=== PATIENT | female | born 1990 | race Two or more races ===

== ENCOUNTER 2023-02-12 13:02 | Observation (INO) | payer MEDICAID ==
[2023-02-15] MEDS ORDERED: PRENCAP75 PO (14:54)
[2023-02-15] MEDS ORDERED: NITR-87 PO (14:54)
== END 2023-02-12 15:08 | disposition home or self-care (01) ==
LOC: UNDOADMOB 13:02 → LDRP 13:02 → UNDODISOB 15:08
PROVIDERS: ADMIT Obstetrics & Gynecology; ATTEND Obstetrics & Gynecology
DX: O24.419 Gestational diabetes mellitus in pregnancy, unspecified control (principal); O40.3XX0 Polyhydramnios, third trimester, not applicable or unspecified; O42.92 Full-term premature rupture of membranes, unspecified as to length of time between rupture and onset of labor; Z3A.34 34 weeks gestation of pregnancy
CPT/HCPCS: 59025; 76818; 81002; G0378

== ENCOUNTER 2023-02-15 12:48 | Observation (INO) | payer MEDICAID ==
[~2023-02-15] VITALS: Ht 30.5 cm; Wt 0.5 kg
[2023-02-15 14:12] LABS: Urine Bacteria FEW /hpf (None Seen); Urine Blood Negative /uL (Negative); Urine Mucus FEW (None Seen); Urine Specific Gravity 1.019 (1.001-1.035); Urine WBC 5 /hpf (0 - 5)
[2023-02-15] MEDS ORDERED: LACTATED RINGER'S 1,000 ML IV ONE (14:15)
[2023-02-15] MEDS ORDERED: BETAMETHASONE ACET (30mg/5ml) 5ml Vial 6mg/ml IM ONE (14:45)
[2023-02-15] MEDS ORDERED: TERBUTALINE SULFATE 1 MG/ML 1ML VIAL SC ONE (14:45)
[2023-02-15] MEDS ORDERED: NITR-87 PO ×2 (14:54)
[2023-02-15] MEDS ORDERED: PRENCAP75 PO ×2 (14:54)
== END 2023-02-15 16:15 | disposition home or self-care (01) ==
LOC: UNDOADMOB 12:48 → LDRP 12:48
PROVIDERS: ADMIT Obstetrics & Gynecology; ATTEND Obstetrics & Gynecology
DX: O23.43 Unspecified infection of urinary tract in pregnancy, third trimester (principal); O60.03 Preterm labor without delivery, third trimester; Z3A.34 34 weeks gestation of pregnancy; Z79.899 Other long term (current) drug therapy
CPT/HCPCS: 59025; 76815; 76817; 76818; 81001; 81002; 94760; 96360; 96361; 96372; G0378; J0702; J3105; 90472

== ENCOUNTER 2023-02-16 15:00 | Observation (INO) | payer MEDICAID ==
[~2023-02-16] VITALS: Ht 168 cm; Wt 80.0 kg
[~2023-02-16 15:00] MED LIST: NITR-87 PO; PRENCAP75 PO
[2023-02-16] MEDS ORDERED: BETAMETHASONE ACET (30mg/5ml) 5ml Vial 6mg/ml IM ONE (16:00)
== END 2023-02-16 16:43 | disposition home or self-care (01) ==
LOC: LDRP 15:00 → UNDOADMOB 15:00 → LDRP 15:12
PROVIDERS: ADMIT Obstetrics & Gynecology; ATTEND Obstetrics & Gynecology
DX: O60.03 Preterm labor without delivery, third trimester (principal); O40.3XX0 Polyhydramnios, third trimester, not applicable or unspecified; O99.891 Other specified diseases and conditions complicating pregnancy; M54.9 Dorsalgia, unspecified; Z3A.34 34 weeks gestation of pregnancy
CPT/HCPCS: 59025; 81002; 96372; G0378

== ENCOUNTER 2023-02-19 09:05 | Observation (INO) | payer MEDICAID | END 2023-02-19 10:16 | disposition home or self-care (01) | LOC: UNDOADMOB 09:05 → LDRP 09:05 → UNDODISOB 10:16 | PROVIDERS: ADMIT Obstetrics & Gynecology; ATTEND Obstetrics & Gynecology | DX: O40.3XX0 Polyhydramnios, third trimester, not applicable or unspecified (principal); Z3A.35 35 weeks gestation of pregnancy | CPT/HCPCS: 59025; 76818; 81002; G0378 ==

== ENCOUNTER → 2023-02-21 | Outpatient (CLI) | payer MEDICAID ==
[2023-02-21 11:59] LABS: Basophils # (auto) 0 10 ^3/uL (0-0.2); Basophils % (auto) 0.2 % (0.0-2.0); Eosinophils # (auto) 0 10 ^3/uL (0-0.8); Eosinophils % (auto) 0.3 % (0.0-7.0); Hematocrit 38.7 % (36.0-46.0); Hemoglobin 13.1 g/dL (12.2-16.2); Lymphocytes # (auto) 1.6 10 ^3/uL (0.4-5.4); Lymphocytes % (auto) 16.2 % (10.0-50.0); Mean Corpuscular Hemoglobin 32.6 pg (28.0-32.0); Mean Corpuscular Hgb Conc. 33.8 g/dL (32.0-36.0); Mean Corpuscular Volume 96.5 fL (80.0-100.0); Monocytes # (auto) 0.7 10 ^3/uL (0-1.3); Monocytes % (auto) 6.9 % (0.0-12.0); Neutrophils # (auto) 7.4 10 ^3/uL (1.6-8.6); Neutrophils % (auto) 76.4 % (37.0-80.0); Nucleated Red Blood Cells % 0.1 %; Red Blood Cells 4.01 10^6/uL (4.0-5.20); Red Cell Distribution Width 13.6 % (11.8-14.3); White Blood Cell 9.7 10^3/uL (4.4-10.8)
[2023-02-21 17:09] LABS: Amphetamine Screen, Urine NEGATIVE (NEGATIVE); Barbiturate Scree,Urine NEGATIVE (NEGATIVE); Benzodiazephine Screen, Urine NEGATIVE (NEGATIVE); Cannabinoid Screen, Urine NEGATIVE (NEGATIVE); Cocaine Screen, Urine NEGATIVE (NEGATIVE)
[2023-02-21 17:10] LABS: Alcohol, Urine < 3.0 mg/dL (0-10); Opiate Scree,Urine NEGATIVE (NEGATIVE); Phencyclidine Screen, Urine NEGATIVE (NEGATIVE)
[2023-02-22 05:07] LABS: RPR Non Reactive (Non Reactive)
== END | disposition home or self-care (01) ==
LOC: LAB 11:31
PROVIDERS: ATTEND Obstetrics & Gynecology
DX: Z34.00 Encounter for supervision of normal first pregnancy, unspecified trimester (principal); Z31.430 Encounter of female for testing for genetic disease carrier status for procreative management; N39.0 Urinary tract infection, site not specified; Z3A.00 Weeks of gestation of pregnancy not specified
CPT/HCPCS: 36415; 80307; 83036; 84112; 84144; 84702; 85025; 86592; 86703; 86762; 86850; 86900; 86901; 87086; 87340

== ENCOUNTER 2023-02-22 09:00 | Observation (INO) | payer MEDICAID | END 2023-02-22 10:40 | disposition home or self-care (01) | LOC: UNDOADMOB 09:00 → LDRP 09:00 → UNDODISOB 10:40 | PROVIDERS: ADMIT Obstetrics & Gynecology; ATTEND Obstetrics & Gynecology | DX: O40.3XX0 Polyhydramnios, third trimester, not applicable or unspecified (principal); Z3A.35 35 weeks gestation of pregnancy | CPT/HCPCS: 59025; 76805; 76818; 81002; 94760; G0378 ==

== ENCOUNTER 2023-02-22 10:38 | Emergency (ER) | payer MEDICAID ==
[2023-02-22 11:52] LABS: Basophils # (auto) 0 10 ^3/uL (0-0.2); Basophils % (auto) 0.1 % (0.0-2.0); Eosinophils # (auto) 0 10 ^3/uL (0-0.8); Eosinophils % (auto) 0.2 % (0.0-7.0); Lymphocytes # (auto) 1.4 10 ^3/uL (0.4-5.4); Lymphocytes % (auto) 16.8 % (10.0-50.0); Mean Corpuscular Hemoglobin 32.9 pg (28.0-32.0); Mean Corpuscular Hgb Conc. 34.2 g/dL (32.0-36.0); Monocytes # (auto) 0.6 10 ^3/uL (0-1.3); Monocytes % (auto) 7.4 % (0.0-12.0); Neutrophils # (auto) 6.5 10 ^3/uL (1.6-8.6); Neutrophils % (auto) 75.5 % (37.0-80.0); Nucleated Red Blood Cells % 0.1 %; Red Blood Cells 3.96 10^6/uL (4.0-5.20); Red Cell Distribution Width 13.9 % (11.8-14.3); White Blood Cell 8.6 10^3/uL (4.4-10.8)
[2023-02-22 12:14] LABS: Albumin 2.8 g/dL (3.4-5.0); BUN/Creatinine Ratio 14.6 (10.0-20.0); Calcium 8.9 mg/dL (8.5-10.1); Potassium 3.8 mmol/L (3.5-5.1)
[2023-02-22 12:17] LABS: Bilirubin, Total 0.2 mg/dL (0.2-1.0); Total Protein 6.1 g/dL (6.4-8.2)
[2023-02-22 13:19] VITALS: BP 105/63
== END 2023-02-22 13:26 | disposition home or self-care (01) ==
LOC: ER 10:38
DX: O26.893 Other specified pregnancy related conditions, third trimester (principal); R07.89 Other chest pain; Z3A.35 35 weeks gestation of pregnancy
CPT/HCPCS: 36415; 80053; 84484; 85025; 93005

== ENCOUNTER 2023-03-19 12:01 | Observation (INO) | payer MEDICAID | END 2023-03-19 17:46 | disposition home or self-care (01) | LOC: LDRP 12:01 | PROVIDERS: ADMIT Obstetrics & Gynecology; ATTEND Obstetrics & Gynecology | DX: O26.893 Other specified pregnancy related conditions, third trimester (principal); R10.9 Unspecified abdominal pain; O62.9 Abnormality of forces of labor, unspecified; Z3A.39 39 weeks gestation of pregnancy | CPT/HCPCS: 59025; 81002; G0378 ==

== ENCOUNTER 2023-03-26 09:56 | Observation (INO) | payer SELFPAY ==
[2023-03-26 11:36] LABS: Fern Testing Negative
== END 2023-03-26 12:14 | disposition home or self-care (01) ==
LOC: LDRP 09:56
PROVIDERS: ADMIT Obstetrics & Gynecology; ATTEND Obstetrics & Gynecology
DX: O26.893 Other specified pregnancy related conditions, third trimester (principal); R10.2 Pelvic and perineal pain; N89.8 Other specified noninflammatory disorders of vagina; Z3A.40 40 weeks gestation of pregnancy
CPT/HCPCS: 59025; 76818; 81002; 84112; G0378; Q0114

== ENCOUNTER 2023-03-27 20:00 | Inpatient (IN) | payer SELFPAY ==
[~2023-03-27] VITALS: Ht 167.6 cm; Wt 86.6 kg
[2023-03-27] MEDS ORDERED: DERMOPLAST 60ML BOTTLE TOP PRN (20:15)
[2023-03-27] MEDS ORDERED: BUTORPHANOL TARTRATE 2 MG/1 ML VIAL IV PRN ×2 (20:15)
[2023-03-27] MEDS ORDERED: miSOPROStol 50 MCG per PRE-CUT 1/2 TAB PO PRN (20:15)
[2023-03-27] MEDS ORDERED: WITCH HAZEL-GLYCERIN PAD TOP PRN (20:15)
[2023-03-27] MEDS ORDERED: PROMETHAZINE HCL 25 MG/ML 1ML IV PRN (20:15)
[2023-03-27] MEDS ORDERED: LIDOCAINE 2%HCL (LOCAL ANESTH.) INJ 20ML MDV IJ PRN (20:15)
[2023-03-27] MEDS ORDERED: PHISODERM TOP SOLN 240ML BTL TOP PRN (20:15)
[2023-03-27] MEDS: LACTATED RINGER'S 1,000 ML IV SCH (21:33)
[2023-03-27 21:54] LABS: Basophils # (auto) 0 10 ^3/uL (0-0.2); Basophils % (auto) 0.2 % (0.0-2.0); Eosinophils # (auto) 0 10 ^3/uL (0-0.8); Eosinophils % (auto) 0.3 % (0.0-7.0); Hemoglobin 12.6 g/dL (12.2-16.2); Lymphocytes # (auto) 1.7 10 ^3/uL (0.4-5.4); Lymphocytes % (auto) 17.2 % (10.0-50.0); Mean Corpuscular Hemoglobin 32.8 pg (28.0-32.0); Mean Corpuscular Hgb Conc. 34.1 g/dL (32.0-36.0); Mean Corpuscular Volume 96.1 fL (80.0-100.0); Monocytes # (auto) 0.7 10 ^3/uL (0-1.3); Monocytes % (auto) 7.4 % (0.0-12.0); Neutrophils # (auto) 7.4 10 ^3/uL (1.6-8.6); Neutrophils % (auto) 74.9 % (37.0-80.0); Nucleated Red Blood Cells % 0.1 %; Red Blood Cells 3.86 10^6/uL (4.0-5.20); Red Cell Distribution Width 13.7 % (11.8-14.3); White Blood Cell 9.8 10^3/uL (4.4-10.8)
[2023-03-27 22:09] LABS: Albumin 2.6 g/dL (3.4-5.0); Potassium 3.4 mmol/L (3.5-5.1)
[2023-03-27 22:13] LABS: Urine Bacteria FEW /hpf (None Seen); Urine Blood Negative /uL (Negative); Urine Clarity HAZY (Clear); Urine Color Yellow (Yellow); Urine Protein, UAD TRACE (Negative); Urine Specific Gravity 1.016 (1.001-1.035); Urine Urobilinogen Normal (Negative); Urine WBC 52 /hpf (0 - 5); Urine pH 5.5 (5.0-8.0)
[2023-03-27 22:13] LABS: BUN/Creatinine Ratio 15.7 (10.0-20.0); Bilirubin, Total 0.2 mg/dL (0.2-1.0); Total Protein 6.2 g/dL (6.4-8.2)
[2023-03-27 22:16] LABS: INR 0.88 (0.9-1.15); Partial Thromboplastin Time 25.1 SEC (24.5-34.5); Prothrombin Time 9.3 sec (9.3-11.8)
[2023-03-27 22:20] LABS: Alcohol, Urine < 3.0 mg/dL (0-10); Amphetamine Screen, Urine NEGATIVE (NEGATIVE); Barbiturate Scree,Urine NEGATIVE (NEGATIVE); Benzodiazephine Screen, Urine NEGATIVE (NEGATIVE); Cannabinoid Screen, Urine NEGATIVE (NEGATIVE); Cocaine Screen, Urine NEGATIVE (NEGATIVE); Opiate Scree,Urine NEGATIVE (NEGATIVE); Phencyclidine Screen, Urine NEGATIVE (NEGATIVE)
[2023-03-28] MEDS ORDERED: LACT. RINGERS/OXYTOCIN 20UNITS 500 ML IV ONE ×4 (01:15→06:45)
[2023-03-28] MEDS: LACTATED RINGER'S 1,000 ML IV SCH ×3 (05:41→20:01)
[2023-03-28] MEDS ORDERED: METHYLERGONOVINE MALEATE 0.2 MG/ML AMP IM PRN (06:15)
[2023-03-28] MEDS ORDERED: miSOPROStol 100 mcg TAB PR PRN (06:15)
[2023-03-28] MEDS ORDERED: CARBOPROST TROMETHAMINE 250 MCG/1ML VIAL IM ONE (06:15)
[2023-03-28] MEDS ORDERED: miSOPROStol 100 mcg TAB SL PRN (06:15)
[2023-03-28] MEDS ORDERED: LACT. RINGERS/OXYTOCIN 20UNITS 1,000 ML IV SCH (07:00)
[2023-03-28] MEDS ORDERED: TERBUTALINE SULFATE 1 MG/ML 1ML VIAL SC PRN (07:00)
[2023-03-28] MEDS ORDERED: LACTATED RINGER'S 1,000 ML IV ONE (13:15)
[2023-03-28] MEDS ORDERED: ROPIVACAINE HCL 200 ML EPI SCH (13:15)
[2023-03-28] MEDS ORDERED: LIDOCAINE HCL 2 %PF INJ 10ML AMP IJ ONE (13:15)
[2023-03-28] MEDS ORDERED: ePHEDrine SULFATE 50 MG/ML AMP IV ONE (13:15)
[2023-03-28] MEDS ORDERED: fentaNYL CITRATE 100 MCG/2 ML VL IV ONE (13:15)
[2023-03-28] MEDS ORDERED: NALOXONE HCL 0.4 MG/ML VIAL IV ONE (13:15)
[2023-03-28] MEDS ORDERED: Lidocaine W-Epinephrine 1.5%-1:200,000 INJ 10ml Vial ONE (13:37)
[2023-03-29] MEDS ORDERED: ceFAZolin 2 GM/D5W100ml 100 ML IV ONE (02:30)
[2023-03-29] MEDS: LACTATED RINGER'S 1,000 ML IV SCH (02:55)
[2023-03-29] MEDS ORDERED: ONDANSETRON ODT 4 MG TAB PO PRN (06:45)
[2023-03-29 07:06] LABS: RPR Non Reactive (Non Reactive)
[2023-03-29] MEDS: IBUPROFEN 600 MG TAB PO PRN ×3 (07:10→19:48)
[2023-03-29] MEDS ORDERED: hydrALAZINE HCL 20 MG/ML VL IV PRN (07:15)
[2023-03-29 07:55] LABS: Basophils # (auto) 0 10 ^3/uL (0-0.2); Basophils % (auto) 0.2 % (0.0-2.0); Eosinophils # (auto) 0 10 ^3/uL (0-0.8); Hematocrit 39.6 % (36.0-46.0); Hemoglobin 13.2 g/dL (12.2-16.2); Lymphocytes % (auto) 6.1 % (10.0-50.0); Mean Corpuscular Hemoglobin 32.4 pg (28.0-32.0); Mean Corpuscular Hgb Conc. 33.5 g/dL (32.0-36.0); Mean Corpuscular Volume 96.8 fL (80.0-100.0); Monocytes # (auto) 0.7 10 ^3/uL (0-1.3); Monocytes % (auto) 4.3 % (0.0-12.0); Neutrophils # (auto) 14.6 10 ^3/uL (1.6-8.6); Neutrophils % (auto) 89.4 % (37.0-80.0); Red Blood Cells 4.09 10^6/uL (4.0-5.20); Red Cell Distribution Width 13.2 % (11.8-14.3); White Blood Cell 16.3 10^3/uL (4.4-10.8)
[2023-03-29] MEDS: ACETAMINOPHEN 325 MG TAB PO PRN ×2 (08:06→17:34)
[2023-03-29 08:08] LABS: INR 0.89 (0.9-1.15); Partial Thromboplastin Time 26.2 SEC (24.5-34.5); Prothrombin Time 9.4 sec (9.3-11.8)
[2023-03-29 09:03] LABS: Albumin 2.3 g/dL (3.4-5.0); Calcium 8.2 mg/dL (8.5-10.1); Potassium 3.5 mmol/L (3.5-5.1)
[2023-03-29 09:06] LABS: BUN/Creatinine Ratio 9.4 (10.0-20.0); Bilirubin, Total 0.4 mg/dL (0.2-1.0); Total Protein 5.9 g/dL (6.4-8.2); Uric Acid 6.9 mg/dL (2.6-6.0)
[2023-03-29] MEDS: ceFAZolin 1GM/50ML 50 ML IV SCH ×2 (10:50→19:47)
[2023-03-29 11:22] VITALS: BP 133/84; PULSE 83; RESP 16; TEMP 99.2; O2SAT 100
[2023-03-29 15:00] VITALS: BP 120/72; PULSE 78; RESP 18; TEMP 98.9; O2SAT 96
[2023-03-29 19:00] VITALS: BP 126/77; PULSE 82; RESP 16; TEMP 98.7; O2SAT 97
[2023-03-29] MEDS ORDERED: DOCUSATE SOD 100 MG CAP PO SCH (22:00)
[2023-03-29 22:45] VITALS: BP 124/80; PULSE 80; RESP 17; TEMP 98.8; O2SAT 98
[2023-03-30] MEDS ORDERED: PRENCAP75 PO (02:03)
[2023-03-30] MEDS ORDERED: ACET-1882 PO (02:03)
[2023-03-30] MEDS ORDERED: IBU600T PO (02:03)
[2023-03-30] MEDS ORDERED: DOCU-265 PO (02:03)
[2023-03-30 02:45] VITALS: BP 116/74; PULSE 77; RESP 17; TEMP 98; O2SAT 97
[2023-03-30] MEDS: ceFAZolin 1GM/50ML 50 ML IV SCH (04:03)
[2023-03-30] MEDS: ACETAMINOPHEN 325 MG TAB PO PRN (06:30)
[2023-03-30 06:48] LABS: Basophils # (auto) 0 10 ^3/uL (0-0.2); Basophils % (auto) 0.2 % (0.0-2.0); Eosinophils # (auto) 0.1 10 ^3/uL (0-0.8); Eosinophils % (auto) 0.6 % (0.0-7.0); Hematocrit 30.7 % (36.0-46.0); Hemoglobin 10.6 g/dL (12.2-16.2); Lymphocytes # (auto) 1.5 10 ^3/uL (0.4-5.4); Lymphocytes % (auto) 14.2 % (10.0-50.0); Mean Corpuscular Hemoglobin 33.4 pg (28.0-32.0); Mean Corpuscular Hgb Conc. 34.5 g/dL (32.0-36.0); Mean Corpuscular Volume 96.8 fL (80.0-100.0); Monocytes # (auto) 0.7 10 ^3/uL (0-1.3); Monocytes % (auto) 6.5 % (0.0-12.0); Neutrophils # (auto) 8.4 10 ^3/uL (1.6-8.6); Neutrophils % (auto) 78.5 % (37.0-80.0); Red Blood Cells 3.17 10^6/uL (4.0-5.20); Red Cell Distribution Width 13.4 % (11.8-14.3); White Blood Cell 10.7 10^3/uL (4.4-10.8)
[2023-03-30 06:50] VITALS: BP 129/83; PULSE 81; RESP 16; TEMP 98.4; O2SAT 96
[2023-03-30 10:50] VITALS: BP 125/81; PULSE 84; RESP 18; TEMP 98.9; O2SAT 97
[2023-03-30] MEDS ORDERED: FER325T PO (14:38)
[2023-03-30 20:06] LABS: Treponema pallidum Ab (FTA-Ab) Non Reactive (Non Reactive)
== END 2023-03-30 10:55 | disposition home or self-care (01) | DRG 807 ==
LOC: LDRP 20:00
PROVIDERS: ADMIT Obstetrics & Gynecology; ATTEND Obstetrics & Gynecology
PROC: 3E0P7VZ Introduction of Hormone into Female Reproductive, Via Natural or Artificial Opening (ICD-10-PCS; 2023-03-27)
PROC: 10E0XZZ Delivery of Products of Conception, External Approach (ICD-10-PCS; principal; 2023-03-29)
PROC: 0KQM0ZZ Repair Perineum Muscle, Open Approach (ICD-10-PCS; 2023-03-29)
PROC: 3E0R3BZ Introduction of Anesthetic Agent into Spinal Canal, Percutaneous Approach (ICD-10-PCS; 2023-03-29)
PROC: 00HU33Z Insertion of Infusion Device into Spinal Canal, Percutaneous Approach (ICD-10-PCS; 2023-03-29)
PROC: 0W8NXZZ Division of Female Perineum, External Approach (ICD-10-PCS; 2023-03-29)
PROC: 3E033VJ Introduction of Other Hormone into Peripheral Vein, Percutaneous Approach (ICD-10-PCS; 2023-03-29)
DX: O48.0 Post-term pregnancy (principal); Z37.0 Single live birth; Z3A.40 40 weeks gestation of pregnancy; O40.3XX0 Polyhydramnios, third trimester, not applicable or unspecified; O70.1 Second degree perineal laceration during delivery
CPT/HCPCS: 36415; 59020; 59025; 59409; 80053; 80307; 81001; 81002; 84550; 85025; 85610; 85730; 86592; 86850; 86900; 86901; 94760; 96360; 96361; 96365; 96366; 96372; 96374; G0378; J0690; J2590

== ENCOUNTER → 2024-07-09 | Outpatient (CLI) | payer MEDICAID ==
[~2024-07-09] MED LIST changes: +ACET-1882 PO; +DOCU-265 PO; +FER325T PO; +IBU600T PO; -NITR-87 PO
[2024-07-09 10:37] LABS: Basophils # (auto) 0 10 ^3/uL (0-0.2); Basophils % (auto) 0.2 % (0.0-2.0); Eosinophils # (auto) 0 10 ^3/uL (0-0.8); Eosinophils % (auto) 0.2 % (0.0-7.0); Hematocrit 38.7 % (36.0-46.0); Hemoglobin 13.1 g/dL (12.2-16.2); Lymphocytes % (auto) 16.5 % (10.0-50.0); Mean Corpuscular Hemoglobin 32.2 pg (28.0-32.0); Mean Corpuscular Hgb Conc. 33.9 g/dL (32.0-36.0); Mean Corpuscular Volume 94.9 fL (80.0-100.0); Monocytes # (auto) 0.5 10 ^3/uL (0-1.3); Monocytes % (auto) 4.1 % (0.0-12.0); Neutrophils # (auto) 9.4 10 ^3/uL (1.6-8.6); Platelet Count (auto) 213 10^3/uL (140-450); Red Blood Cells 4.08 10^6/uL (4.0-5.20); Red Cell Distribution Width 13.2 % (11.8-14.3); White Blood Cell 11.9 10^3/uL (4.4-10.8)
[2024-07-09 10:49] LABS: Amphetamine Screen, Urine Neg (NEGATIVE)
[2024-07-09 10:51] LABS: Alanine Aminotransferase 13 U/L (7-40); Alkaline Phosphatase 82 U/L (46-116); Anion Gap 10 (5-15); Aspartate Aminotransferase 10 U/L (13-40); BUN/Creatinine Ratio 9.4 (10.0-20.0); Barbiturate Scree,Urine Neg (NEGATIVE); Benzodiazephine Screen, Urine Neg (NEGATIVE); Blood Urea Nitrogen 5 mg/dL (9-23); Calcium 9.2 mg/dL (8.7-10.4); Carbon Dioxide 23 mmol/L (20-31); Chloride 107 mmol/L (98-107); Cocaine Screen, Urine Neg (NEGATIVE); Glucose 78 mg/dL (74-106); Opiate Scree,Urine Neg (NEGATIVE); Potassium 3.6 mmol/L (3.5-5.1); Sodium 140 mmol/L (136-145)
[2024-07-09 10:52] LABS: Bilirubin, Total 0.5 mg/dL (0.2-1.0); Cannabinoid Screen, Urine Neg (NEGATIVE); Phencyclidine Screen, Urine Neg (NEGATIVE); Total Protein 6.6 g/dL (5.7-8.2)
[2024-07-09 11:00] LABS: Iron 102 ug/dL (50-170)
[2024-07-09 11:03] LABS: % Iron Saturation 24.7 % (15-50); Total Iron Binding Capacity 413 ug/dL (250-425)
[2024-07-09 11:04] LABS: Ferritin 25.7 ng/mL (10-291)
[2024-07-09 11:07] LABS: Free T4 (Free Thyroxine) 1.01 ng/dL (0.89-1.76)
[2024-07-09 11:08] LABS: Beta HCG, Quantitative 10970.8 mIU/mL (1.5-4.2)
[2024-07-09 11:11] LABS: Thyroid Stimulating Hormone 1.5 uIU/mL (0.55-4.78)
[2024-07-09 11:49] LABS: RUBELLA Positive
[2024-07-10 05:08] LABS: Varicella Zoster IgG Antibody Reactive (Non Reactive)
[2024-07-10 06:07] LABS: RPR Non Reactive (Non Reactive)
== END | disposition home or self-care (01) ==
LOC: LAB 09:37
PROVIDERS: ATTEND Nurse Practitioner Women's Health
DX: Z36.0 Encounter for antenatal screening for chromosomal anomalies (principal); Z34.80 Encounter for supervision of other normal pregnancy, unspecified trimester; N39.0 Urinary tract infection, site not specified; Z31.430 Encounter of female for testing for genetic disease carrier status for procreative management
CPT/HCPCS: 36415; 80053; 80307; 82306; 82728; 83036; 83540; 83550; 84439; 84443; 84702; 85025; 86592; 86703; 86762; 86787; 86850; 86900; 86901; 87086; 87340; 87902

== ENCOUNTER → 2024-08-06 | Outpatient (CLI) | payer MEDICAID ==
[2024-08-06 09:19] LABS: Basophils # (auto) 0 10 ^3/uL (0-0.2); Basophils % (auto) 0.2 % (0.0-2.0); Eosinophils # (auto) 0 10 ^3/uL (0-0.8); Eosinophils % (auto) 0.3 % (0.0-7.0); Hematocrit 37.9 % (36.0-46.0); Lymphocytes # (auto) 1.4 10 ^3/uL (0.4-5.4); Lymphocytes % (auto) 15.1 % (10.0-50.0); Mean Corpuscular Hemoglobin 32.7 pg (28.0-32.0); Mean Corpuscular Hgb Conc. 34.3 g/dL (32.0-36.0); Mean Corpuscular Volume 95.3 fL (80.0-100.0); Monocytes # (auto) 0.5 10 ^3/uL (0-1.3); Monocytes % (auto) 5.7 % (0.0-12.0); Neutrophils # (auto) 7.1 10 ^3/uL (1.6-8.6); Neutrophils % (auto) 78.7 % (37.0-80.0); Platelet Count (auto) 195 10^3/uL (140-450); Red Blood Cells 3.98 10^6/uL (4.0-5.20); Red Cell Distribution Width 13.3 % (11.8-14.3)
[2024-08-07 07:06] LABS: RPR Non Reactive (Non Reactive)
== END | disposition home or self-care (01) ==
LOC: LAB 08:48
PROVIDERS: ATTEND Obstetrics & Gynecology
DX: Z34.80 Encounter for supervision of other normal pregnancy, unspecified trimester (principal)
CPT/HCPCS: 36415; 82951; 85025; 86592; 87902

== ENCOUNTER 2024-08-21 15:12 | Observation (INO) | payer MEDICAID ==
[2024-08-21 16:22] LABS: Basophils # (auto) 0 10 ^3/uL (0-0.2); Basophils % (auto) 0.3 % (0.0-2.0); Eosinophils # (auto) 0 10 ^3/uL (0-0.8); Eosinophils % (auto) 0.3 % (0.0-7.0); Hematocrit 38.1 % (36.0-46.0); Hemoglobin 13.3 g/dL (12.2-16.2); Lymphocytes # (auto) 2.2 10 ^3/uL (0.4-5.4); Lymphocytes % (auto) 21.6 % (10.0-50.0); Mean Corpuscular Hemoglobin 32.9 pg (28.0-32.0); Mean Corpuscular Hgb Conc. 34.9 g/dL (32.0-36.0); Mean Corpuscular Volume 94.4 fL (80.0-100.0); Monocytes # (auto) 0.7 10 ^3/uL (0-1.3); Monocytes % (auto) 7.3 % (0.0-12.0); Neutrophils % (auto) 70.5 % (37.0-80.0); Platelet Count (auto) 196 10^3/uL (140-450); Red Blood Cells 4.03 10^6/uL (4.0-5.20); Red Cell Distribution Width 13.4 % (11.8-14.3)
[2024-08-21 16:33] LABS: Protein, Urine 29.2 mg/dL (1-14)
[2024-08-21 16:36] LABS: Creatinine, Urine 111.72 mg/dL (30.0-125.0); Urine Protein/Creatinine Ratio 0.26
[2024-08-21 16:43] LABS: Alanine Aminotransferase 11 U/L (7-40); Albumin 3.9 g/dL (3.2-4.8); Alkaline Phosphatase 97 U/L (46-116); Anion Gap 8 (5-15); Bilirubin, Total 0.3 mg/dL (0.2-1.0); Blood Urea Nitrogen 10 mg/dL (9-23); Carbon Dioxide 21 mmol/L (20-31); Potassium 3.9 mmol/L (3.5-5.1); Sodium 136 mmol/L (136-145); Total Protein 6.4 g/dL (5.7-8.2); Uric Acid 4.1 mg/dL (3.1-7.8); Urine Bacteria MANY /hpf (None Seen); Urine Blood Negative /uL (Negative); Urine Clarity Turbid (Clear); Urine Color Yellow (Yellow); Urine Mucus FEW (None Seen); Urine Protein, UAD TRACE (Negative); Urine Specific Gravity 1.029 (1.001-1.035); Urine Squamous Epithelial Cell MANY /hpf (<5); Urine Urobilinogen Normal (Negative); Urine WBC 10 /hpf (0 - 5)
[2024-08-21 16:49] LABS: Aspartate Aminotransferase 12 U/L (13-40); Chloride 107 mmol/L (98-107); Glucose 72 mg/dL (74-106)
--- NOTE | 2024-08-21 17:09 | DVH ---
BIOPHYSICAL PROFILE HISTORY: pih TECHNIQUE: Multiple transabdominal real-time grayscale sonographic images through the gravid uterus of the fetus with duplex Doppler color flow and M-mode spectral analysis FINDINGS: BIOPHYSICAL PROFILE: breathing score: 2 movement score: 2 tone score: 2 Quantitative BYRON score: 2 (BYRON: 14.1 Cm.) Total score: 8/8 Single live fetus in cephalic presentation. heart rate 154 beats per minute. Anterior placenta without previa or abruption IMPRESSION: 1. Biophysical profile score: 8/8 HS:Y
[2024-08-21 17:54] LABS: INR 0.88 (0.9-1.15); Prothrombin Time 9.4 sec (9.3-11.8)
--- NOTE | 2024-08-21 19:59 | DVHDS2 ---
Physician Discharge Progress N Final Diagnosis: ruled out preeclampsia Operations or Procedures: Operations or Procedures 33yo IUP@35.5wks presents to OB triage from [facility] OB office for 3+ proteinuria. +FM, denies UCs/LOF/VB/CAMPOVERDE/vision changes/RUQ pain. VSS except one 140/81 UA wnl NST reactive (verified by 2 RNs) BPP wnl FKC/PTL/PreE precautions reviewed Laboratory Tests Test 08/21/24 15:42 Range/Units White Blood Count 10.0 4.4-10.8 10^3/uL Red Blood Count 4.03 4.0-5.20 10^6/uL Hemoglobin 13.3 12.2-16.2 g/dL Hematocrit 38.1 36.0-46.0 % Mean Corpuscular Volume 94.4 80.0-100.0 fL Mean Corpuscular Hemoglobin 32.9 H 28.0-32.0 pg Mean Corpuscular Hemoglobin Concent 34.9 32.0-36.0 g/dL Red Cell Distribution Width 13.4 11.8-14.3 % Platelet Count 196 140-450 10^3/uL Mean Platelet Volume 10.8 6.9-10.8 fL Neutrophils (%) (Auto) 70.5 37.0-80.0 % Lymphocytes (%) (Auto) 21.6 10.0-50.0 % Monocytes (%) (Auto) 7.3 0.0-12.0 % Eosinophils (%) (Auto) 0.3 0.0-7.0 % Basophils (%) (Auto) 0.3 0.0-2.0 % Neutrophils # (Auto) 7.0 1.6-8.6 10 ^3/uL Lymphocytes # (Auto) 2.2 0.4-5.4 10 ^3/uL Monocytes # (Auto) 0.7 0-1.3 10 ^3/uL Eosinophils # (Auto) 0 0-0.8 10 ^3/uL Basophils # (Auto) 0 0-0.2 10 ^3/uL Nucleated Red Blood Cells 0.0 % Prothrombin Time 9.4 9.3-11.8 sec Prothrombin Time INR 0.88 L 0.9-1.15 Activated Partial Thromboplast Time 25.0 24.5-34.5 SEC Urine Color Yellow Yellow Urine Clarity Turbid H Clear Urine pH 6.0 5.0-9.0 Urine Specific [place] 1.029 1.001-1.035 Urine Protein Trace H Negative Urine Ketones Trace Negative Urine Blood Negative Negative /uL Urine Nitrite Negative Negative Urine Bilirubin Negative Negative Urine Urobilinogen Normal Negative mg/dL Urine Leukocyte Esterase 2+ Negative /uL Urine RBC 7 0 - 4 /hpf Urine WBC 10 0 - 5 /hpf Urine Squamous Epithelial Cells Many <5 /hpf Urine Bacteria Many H None Seen /hpf Urine Mucus Few None Seen Urine Creatinine 111.72 30.0-125.0 mg/dL Urine Protein/Creatinine Ratio 0.26 Urine Glucose Normal Normal mg/dL Urine Total Protein 29.2 H 1-14 mg/dL Sodium Level 136 136-145 mmol/L Potassium Level 3.9 3.5-5.1 mmol/L Chloride Level 107 98-107 mmol/L Carbon Dioxide Level 21 20-31 mmol/L Anion Gap 8 5-15 Blood Urea Nitrogen 10 9-23 mg/dL Creatinine 0.50 L 0.550-1.02 mg/dL Glomerular Filtration Rate Calc 127 >90 mL/min BUN/Creatinine Ratio 20.0 10.0-20.0 Serum Glucose 72 L 74-106 mg/dL Uric Acid 4.1 3.1-7.8 mg/dL Calcium Level 10.0 8.7-10.4 mg/dL Total Bilirubin 0.3 0.2-1.0 mg/dL Aspartate Amino Transferase (AST) 12 L 13-40 U/L Alanine Aminotransferase (ALT) 11 7-40 U/L Alkaline Phosphatase 97 46-116 U/L Total Protein 6.4 5.7-8.2 g/dL Albumin 3.9 3.2-4.8 g/dL Condition on Discharge: Stable Disposition: Home Discharge Instructions: Diet: Regular Activity: No Restrictions, As Tolerated Medications: see med list Follow Up Care: Specialist: f/u in 1wk Discharge Statement: "Patient was advised to return to the ER or call 911 if any headaches, dizziness, shortness of breath, chest pain, abdominal pain, bleeding, fevers, or worsening of medical condition. Patient was counseled about treatment plan, medications, possible side effects, patientverbalized understanding. All questions were answered to the best of my ability. This discharge took greater then 30 minutes in planning, reviewing document ation, counseling the patient, and discussing with other team members." RONNIE QUIJANO [facility] Aug 21, 2024 19:59
== END 2024-08-21 17:22 | disposition home or self-care (01) ==
LOC: LDRP 15:12
PROVIDERS: ADMIT Obstetrics & Gynecology; ATTEND Obstetrics & Gynecology
DX: O26.893 Other specified pregnancy related conditions, third trimester (principal); R80.9 Proteinuria, unspecified; Z3A.35 35 weeks gestation of pregnancy; Z79.899 Other long term (current) drug therapy; Z98.890 Other specified postprocedural states
CPT/HCPCS: 36415; 59025; 76818; 80053; 81001; 81002; 82570; 84156; 84550; 85025; 85610; 85730; 94760; G0378

== ENCOUNTER 2024-08-30 09:13 | Observation (INO) | payer MEDICAID ==
--- NOTE | 2024-08-30 10:01 | DVH ---
CLINICAL HISTORY: -induced hypertension. COMPARISON: US BIOPHYSICAL PROFILE on DOS: 08/21/24, US BIOPHYSICAL PROFILE on DOS: 03/26/23, US BIOPHYSI JON PROFILE on DOS: 02/22/23 TECHNIQUE: biophysical profile was performed. Transabdominal sonographic images of the fetus we re obtained. FINDINGS: The fetus is in cephalic position. heart rate measures 161 BPM. Amniotic fluid index measures 15.4 cm. The placenta is anterior in position with no evidence of previa or abruption. BPP profile is an overall score of 8/8, with 2/2 points for breathing, with at least one episode of breathing over a 30 second duration during a 30 minute observation, 2/2 points for m ovements, with 3 or more discrete body or limb movements, 2/2 points for tone, with one or more episodes of extremity extension with return to flexion, or opening and closing of hand, and 2/ 2 points for amniotic fluid, with at least 1 pocket of amniotic fluid that measures 2 cm in 2 perpend icular planes. IMPRESSION: BPP score of 8/8.
--- NOTE | 2024-08-30 10:51 | DVHDS2 ---
Physician Discharge Progress N Final Diagnosis: Encounter for surveillance Gestational HTN Operations or Procedures: Operations or Procedures NST/BPP BYRON all WNL PATIENT: ELADIA COLLINS ACCT: [id number] UNIT: [id number] : 1990 LOC: [facility] ROOM / BED: TRIAGE1 / A AGE / SEX: 33 / F ADM STATUS: ADM IN SERVICE 3 ORDERING PHYSICIAN: IRMA EPPS DO PROCEDURE(s): BPP - BIOPHYSICAL PROFILE REASON: [facility] ORDER NUMBER(s): [id number], ACCESSION NUMBER(s): [id number] CLINICAL HISTORY: -induced hypertension. COMPARISON: US BIOPHYSICAL PROFILE on DOS: 08/21/24, US BIOPHYSICAL PROFILE on DOS: 03/26/23, US BIOPHYSICAL PROFILE on DOS: 02/22/23 TECHNIQUE: biophysical profile was performed. Transabdominal sonographic images of the fetus were obtained. FINDINGS: The fetus is in cephalic position. heart rate measures 161 BPM. Amniotic fluid index measures 15.4 cm. The placenta is anterior in position with no evidence of previa or abruption. BPP profile is an overall score of 8/8, with 2/2 points for breathing, with at least one episode of breathing over a 30 second duration during a 30 minute observation, 2/2 points for movements, with 3 or more discrete body or limb movements, 2/2 points for tone, with one or more episodes of extremity extension with return to flexion, or opening and closing of hand, and 2/2 points for amniotic fluid, with at least 1 pocket of amniotic fluid that measures 2 cm in 2 perpendicular planes. IMPRESSION: BPP score of 8/8. ATED BY: PERNELL NELSON DO DICTATED DATE/TIME: 08/30/2459 Condition on Discharge: Stable Disposition: Home Discharge Instructions: Diet: Regular Activity: No Restrictions, As Tolerated Follow Up/Referral: as scheduled Medications: N/A Follow Up Care: Discharge Statement: "Patient was advised to return to the ER or call 911 if any headaches, dizziness, shortness of breath, chest pain, abdominal pain, bleeding, fevers, or worsening of medical condition. Patient was counseled about treatment plan, medications, possible side effects, patientverbalized understanding. All questions were answered to the best of my ability. This discharge took greater then 30 minutes in planning, reviewing documentation, counseling the patient, and discussing with other team members." IRMA EPPS DO Aug 30, 2024 10:51
== END 2024-08-30 10:55 | disposition home or self-care (01) ==
LOC: LDRP 09:13
PROVIDERS: ADMIT Obstetrics & Gynecology; ATTEND Obstetrics & Gynecology
DX: O13.3 Gestational [pregnancy-induced] hypertension without significant proteinuria, third trimester (principal); Z3A.37 37 weeks gestation of pregnancy; Z79.899 Other long term (current) drug therapy; Z98.890 Other specified postprocedural states
CPT/HCPCS: 59025; 76818; 81002; 94760; G0378

== ENCOUNTER 2024-09-06 09:23 | Observation (INO) | payer MEDICAID ==
--- NOTE | 2024-09-06 10:46 | DVH ---
Procedure: US BIOPHYSICAL PROFILE 09/06/2024 10:10 AM Indication: PIH Comparison: US BIOPHYSICAL PROFILE on DOS: 08/30/24, US BIOPHYSICAL PROFILE on DOS: 08/21/24, US BIOPHYS ICAL PROFILE on DOS: 03/26/23 Technique: Sonogram of gravid uterus utilizing grayscale and color techniques. FINDINGS: Single living intrauterine gestation. Presentation: Cephalic Placenta: Anterior heart rate: 134 bpm BYRON: 15.5 cm, DVP: 6.6 cm Maternal cervix: Not visualized Biophysical Profile: breathing score: 2 movement score: 2 tone: 2 Quantitative BYRON score: 2 Total score: 8/8 IMPRESSION: 1. Single living as above. 2. Biophysical profile score: 8/8.
--- NOTE | 2024-09-06 18:38 | DVHDS2 ---
Physician Discharge Progress N Final Diagnosis: PIH Operations or Procedures: Operations or Procedures NST,SONO Condition on Discharge: Good Disposition: Home Discharge Instructions: Diet: Regular Activity: No Restrictions, As Tolerated Follow Up/Referral: Follow up in [facility] on September 13 at 9:00 am for NST/BPP. Medications: NA Follow Up Care: Specialist: 3D Discharge Statement: "Patient was advised to return to the ER or call 911 if any headaches, dizziness, shortness of breath, chest pain, abdominal pain, bleeding, fevers, or worsening of medical condition. Patient was counseled about treatment plan, medications, possible side effects, patientverbalized understanding. All questions were answered to the best of my ability. This discharge took greater then 30 minutes in planning, reviewing documentation, counseling the patient, and discussing with other team members." ORLIN ESTEVES DO Sep 06, 2024 18:37
== END 2024-09-06 11:03 | disposition home or self-care (01) ==
LOC: LDRP 09:23
PROVIDERS: ADMIT Obstetrics & Gynecology; ATTEND Obstetrics & Gynecology
DX: O13.3 Gestational [pregnancy-induced] hypertension without significant proteinuria, third trimester (principal); Z98.890 Other specified postprocedural states; Z79.899 Other long term (current) drug therapy; Z3A.38 38 weeks gestation of pregnancy
CPT/HCPCS: 59025; 76818; 81002; 94760; G0378

== ENCOUNTER 2024-09-08 07:58 | Inpatient (IN) | payer MEDICAID ==
[~2024-09-08] VITALS: Ht 165.1 cm; Wt 91.2 kg
[2024-09-08] MEDS ORDERED: PHISODERM TOP SOLN 240ML BTL TOP PRN (08:15)
[2024-09-08] MEDS ORDERED: LIDOCAINE 2%HCL (LOCAL ANESTH.) INJ 20ML MDV IJ PRN (08:15)
[2024-09-08] MEDS ORDERED: BUTORPHANOL TARTRATE 2 MG/1 ML VIAL IV PRN ×2 (08:15)
[2024-09-08] MEDS ORDERED: DERMOPLAST 60ML BOTTLE TOP PRN (08:15)
[2024-09-08] MEDS ORDERED: WITCH HAZEL-GLYCERIN PAD TOP PRN (08:15)
[2024-09-08] MEDS ORDERED: LACT. RINGERS/OXYTOCIN 20UNITS 500 ML IV ONE (08:45)
[2024-09-08 08:48] LABS: Basophils # (auto) 0 10 ^3/uL (0-0.2); Basophils % (auto) 0.3 % (0.0-2.0); Eosinophils # (auto) 0 10 ^3/uL (0-0.8); Eosinophils % (auto) 0.3 % (0.0-7.0); Hematocrit 39.1 % (36.0-46.0); Hemoglobin 13.4 g/dL (12.2-16.2); Lymphocytes # (auto) 1.5 10 ^3/uL (0.4-5.4); Mean Corpuscular Hemoglobin 32.1 pg (28.0-32.0); Mean Corpuscular Hgb Conc. 34.2 g/dL (32.0-36.0); Monocytes # (auto) 0.6 10 ^3/uL (0-1.3); Monocytes % (auto) 5.5 % (0.0-12.0); Neutrophils # (auto) 7.9 10 ^3/uL (1.6-8.6); Neutrophils % (auto) 78.9 % (37.0-80.0); Nucleated Red Blood Cells % 0.1 %; Platelet Count (auto) 188 10^3/uL (140-450); Red Blood Cells 4.17 10^6/uL (4.0-5.20)
[2024-09-08 09:23] LABS: Alanine Aminotransferase 11 U/L (7-40); Albumin 3.7 g/dL (3.2-4.8); Alkaline Phosphatase 114 U/L (46-116); Anion Gap 8 (5-15); Aspartate Aminotransferase 16 U/L (13-40); BUN/Creatinine Ratio 17.4 (10.0-20.0); Bilirubin, Total 0.4 mg/dL (0.2-1.0); Blood Urea Nitrogen 12 mg/dL (9-23); Carbon Dioxide 22 mmol/L (20-31); Chloride 107 mmol/L (98-107); Glucose 94 mg/dL (74-106); Potassium 3.9 mmol/L (3.5-5.1); Sodium 137 mmol/L (136-145); Total Protein 6.3 g/dL (5.7-8.2); Uric Acid 5.9 mg/dL (3.1-7.8)
[2024-09-08 09:27] LABS: INR 0.84 (0.9-1.15); Partial Thromboplastin Time 24.2 SEC (24.5-34.5); Prothrombin Time 9.1 sec (9.3-11.8)
[2024-09-08] MEDS: LACTATED RINGER'S 1,000 ML IV SCH (10:07)
--- NOTE | 2024-09-08 11:08 | DVHHP2 ---
OB CC & HPI Date Date of Admission: Sep 08, 2024 Patient Identification: : 2 Para: 1 EDC: Sep 13, 2024 EGA: 39.2 Chief Complaints: Reason for admission: active labor History of Present Complaints Active labor, 7cm dilated with regular contractions Denies PROM PNL care in [place], late entry to care w/ Dr. Shine Had gestational HTN, BP's normal, asymptomatic GBS neg Past Medical History Cardiac: No pertinent Hx Pulmonary: No pertinent Hx Central Nervous System: No pertinent Hx GI: No pertinent Hx Hemotology/Oncology: No pertinent Hx Hepatobiliary: No pertinent Hx Psychiatric: No pertinent Hx Musculoskeletal: No pertinent Hx Rheumotologic: No pertinent Hx Infectious Disease: No peritnent Hx ENT: No pertinent Hx Renal/: No pertinent Hx Endocrine: No pertinent Hx Dermatology: No pertinent Hx Past Surgical History: No pertinent Hx OB History OB History Care: Good Care Obstetrical Complications: Gestational Hypertension Medical Complications: None Allergies: Coded Allergies: NO KNOWN ALLERGIES (Unverified , 02/15/23) Home Meds Active Scripts Ferrous Sulfate (FERROUS SULFATE) 325 Mg Tb, 1 TAB PO DAILY, #30 TAB 3 Refills Prov:[facility] 03/30/23 Ibuprofen Micronized (MOTRIN TABLET) 600 Mg Tb, 600 MG PO Q6HP PRN for 15 Days, #60 TAB Prov:[facility]NASANY[facility] 03/30/23 Docusate Sodium (Docusate Sodium) 100 Mg Cap, 200 MG PO HS for 30 Days, #30 CAP 1 Refill Prov:[facility] 03/30/23 Acetaminophen (Acetaminophen) 325 Mg Tab, 650 MG PO Q6HP PRN for 10 Days, #80 TAB Prov:[facility] 03/30/23 Prenat Vit W/ Iron Carbonyl-Fe (OB COMPLETE/DHA) Dha Cap, 1 CAP PO DAILY for 90 Days, #90 CAP 3 Refills Prov:[facility]JANASANY[facility] 03/30/23 Current Medications Current Medications Medications (Trade) Dose Ordered Sig/Lizzy Route PRN Reason Start Time Stop Time Status Last Admin Lactated Ringer's 1,000 ml @ 125 mls/hr Q8H IV 09/08/24 08:15 09/08/24 10:07 Witch Aspen (Tucks) 1 pad PRN PRN TOP PERINEAL AREA DISCOMFORT 09/08/24 08:15 Sodium Lauryl Sulfate (Phisoderm) 240 ml PRN PRN TOP PERINEAL AREA DISCOMFORT 09/08/24 08:15 Benzocaine (Dermoplast) 1 applic PRN PRN TOP PERINEAL AREA DISCOMFORT 09/08/24 08:15 Butorphanol Tartrate (Stadol Injection) 1 mg Q4HPRN PRN IV MODERATE PAIN (4-6 PAIN SCALE) 09/08/24 08:15 Butorphanol Tartrate (Stadol Injection) 2 mg Q4HPRN PRN IV SEVERE PAIN (7-10 PAIN SCALE) 09/08/24 08:15 Lidocaine HCl (Xylocaine) 20 ml ONCE PRN IJ PERINEAL AREA DISCOMFORT 09/08/24 08:15 Family & Social History Family/Social History Blood Type: O+ Rubella: immune RPR/VDRL: Negative GBS Status: Negative HBsAG: Negative Review of Systems Constitutional: No symptom reported Ears, Nose, & Throat: No symptom reported Eyes: No symptom reported Pulmonary/Respiratory: No symptom reported Cardiovascular: No symptom reported Gastrointestinal: No symptom reported Genitourinary: No symptom reported Musculoskeletal: No symptom reported Skin: No symptom reported Psychiatric: No symptom reported Endocrine: No symptom reported Hemotologic/Lymphatic: No symptom reported OB Admission Exam Physical Exam HEENT: NCAT Heart: Rhythm Normal Lungs: Clear Abdomen: Gravid Extremities: Normal Reflexes: Normal Cervical Dilatation: 7cm Effacement: Other (80) Station: -2 Membranes: Intact Heart Rate: 130's Accelerations: Accelerations Present Decelerations: No Decelerations Short Term Variability: Present Retirement Variability: Average (6-25) Contractions on Admission: None Intensity: Moderate OB Plan Plan Admitting Diagnosis: Term IUP 39.2 wk, Active Labor GBS neg Categ 1 FHR Gestational HTN Plan: Expectant Management Other Plan: Admit for labor and delivery Anticipated IRMA FLEMING DO Sep 08, 2024 11:08
[2024-09-08] MEDS ORDERED: NALOXONE HCL 0.4 MG/ML VIAL IV ONE (11:15)
[2024-09-08] MEDS: ePHEDrine SULFATE 50 MG/ML AMP IV ONE (11:44)
--- NOTE | 2024-09-08 12:27 | DVHPN2 ---
OB Labor Progress Note Date and Time Seen Date Seen: Sep 08, 2024 Time Seen: 12:26 Subjective Patient reports: No new complaints, Feels better Subjective Comment s/p Epidural feel better, pain improved Monitoring Method Monitoring Method: External Heart Rate Heart Rate Baseline: 140 Heart Rate Variability: Moderate Presence of FHR Accelerations: Yes Presence of FHR Decelerations: No Contractions Contractions Frequency: Occasional Contractions Intensity: Moderate Contractions Resting Tone: Relaxed Membranes Membranes: Ruptured (AROM) Amniotic Fluid Color: Clear Vaginal Exam Vag Exam Deferred: No Vaginal Exam Dilation: 7 Vaginal Exam Effacement: 80 Vaginal Exam Station: -2 Vaginal Exam Presentation: VTX Vaginal Exam Show: None Medications Medications - Pitocin: No Medication - Epidural: Yes Lab Results Lab Results Current Medications Medications (Trade) Dose Ordered Sig/Lizzy Start Time Stop Time Status Last Admin Dose Admin Lactated Ringer's 1,000 ml @ 125 mls/hr Q8H 09/08/24 08:15 09/08/24 10:07 125 MLS/HR Witch Aspen (Tucks) 1 pad PRN PRN 09/08/24 08:15 Sodium Lauryl Sulfate (Phisoderm) 240 ml PRN PRN 09/08/24 08:15 Benzocaine (Dermoplast) 1 applic PRN PRN 09/08/24 08:15 Butorphanol Tartrate (Stadol Injection) 1 mg Q4HPRN PRN 09/08/24 08:15 Butorphanol Tartrate (Stadol Injection) 2 mg Q4HPRN PRN 09/08/24 08:15 Lidocaine HCl (Xylocaine) 20 ml ONCE PRN 09/08/24 08:15 Oxytocin 500 ml @ 999 mls/hr Q31M ONCE 09/08/24 08:15 09/08/24 08:45 DC Oxytocin 500 ml @ 125 mls/hr Q4H ONCE 09/08/24 08:45 09/08/24 12:44 Naloxone HCl (Narcan) 0.2 mg PRN ONCE 09/08/24 11:15 09/08/24 11:19 DC Ephedrine Sulfate (ePHEDrine SULFATE) 10 mg PRN ONCE 09/08/24 11:15 09/08/24 11:19 DC 09/08/24 11:44 10 MG Lactated Ringer's 1,000 ml @ 1,000 mls/hr Q1H ONCE 09/08/24 11:15 09/08/24 12:14 DC Fentanyl Citrate 100 mcg ONCE ONCE 09/08/24 11:15 09/08/24 11:19 DC Laboratory Tests Test 09/08/24 08:29 Range/Units White Blood Count 10.0 4.4-10.8 10^3/uL Red Blood Count 4.17 4.0-5.20 10^6/uL Hemoglobin 13.4 12.2-16.2 g/dL Hematocrit 39.1 36.0-46.0 % Mean Corpuscular Volume 94.0 80.0-100.0 fL Mean Corpuscular Hemoglobin 32.1 H 28.0-32.0 pg Mean Corpuscular Hemoglobin Concent 34.2 32.0-36.0 g/dL Red Cell Distribution Width 13.0 11.8-14.3 % Platelet Count 188 140-450 10^3/uL Mean Platelet Volume 10.6 6.9-10.8 fL Neutrophils (%) (Auto) 78.9 37.0-80.0 % Lymphocytes (%) (Auto) 15.0 10.0-50.0 % Monocytes (%) (Auto) 5.5 0.0-12.0 % Eosinophils (%) (Auto) 0.3 0.0-7.0 % Basophils (%) (Auto) 0.3 0.0-2.0 % Neutrophils # (Auto) 7.9 1.6-8.6 10 ^3/uL Lymphocytes # (Auto) 1.5 0.4-5.4 10 ^3/uL Monocytes # (Auto) 0.6 0-1.3 10 ^3/uL Eosinophils # (Auto) 0 0-0.8 10 ^3/uL Basophils # (Auto) 0 0-0.2 10 ^3/uL Nucleated Red Blood Cells 0.1 % Prothrombin Time 9.1 L 9.3-11.8 sec Prothrombin Time INR 0.84 L 0.9-1.15 Activated Partial Thromboplast Time 24.2 L 24.5-34.5 SEC Sodium Level 137 136-145 mmol/L Potassium Level 3.9 3.5-5.1 mmol/L Chloride Level 107 98-107 mmol/L Carbon Dioxide Level 22 20-31 mmol/L Anion Gap 8 5-15 Blood Urea Nitrogen 12 9-23 mg/dL Creatinine 0.69 0.550-1.02 mg/dL Glomerular Filtration Rate Calc 117 >90 mL/min BUN/Creatinine Ratio 17.4 10.0-20.0 Serum Glucose 94 74-106 mg/dL Uric Acid 5.9 3.1-7.8 mg/dL Calcium Level 10.0 8.7-10.4 mg/dL Total Bilirubin 0.4 0.2-1.0 mg/dL Aspartate Amino Transferase (AST) 16 13-40 U/L Alanine Aminotransferase (ALT) 11 7-40 U/L Alkaline Phosphatase 114 46-116 U/L Total Protein 6.3 5.7-8.2 g/dL Albumin 3.7 3.2-4.8 g/dL Rapid Plasma Reagin Pending Treponema pallidum Ab (TP-PA) Pending Hepatitis C Antibody Negative Negative Assessment Assessment Term IUP labor s/p Amniotomy Categ 1 FHR Plan Plan Pitocin augmentation ordered. Plan discussed with: Patient IRMA EPPS DO Sep 08, 2024 12:27
[2024-09-08] MEDS: LACTATED RINGER'S 1,000 ML IV ONE (12:29)
[2024-09-08] MEDS ORDERED: TERBUTALINE SULFATE 1 MG/ML 1ML VIAL SC PRN (12:30)
[2024-09-08] MEDS: ROPIVACAINE HCL 200 ML ONE (12:34)
[2024-09-08] MEDS: fentaNYL CITRATE 100 MCG/2 ML VL IV ONE (12:36)
[2024-09-08] MEDS: LACT. RINGERS/OXYTOCIN 20UNITS 1,000 ML IV SCH (12:37)
[2024-09-08 17:48] VITALS: O2SAT 100
[2024-09-08 18:20] VITALS: BP 161/76; PULSE 102; RESP 18; TEMP 98.8; O2SAT 96
[2024-09-08] MEDS: IBUPROFEN 600 MG TAB PO PRN (18:27)
[2024-09-08] MEDS: LACT. RINGERS/OXYTOCIN 20UNITS 500 ML IV ONE (18:36)
[2024-09-08 18:40] VITALS: BP 112/84; PULSE 103; RESP 18; O2SAT 96
[2024-09-08 18:55] VITALS: BP 119/80; PULSE 96; RESP 18; O2SAT 96
[2024-09-08] MEDS: ACETAMINOPHEN 325 MG TAB PO PRN (20:33)
[2024-09-08 23:00] VITALS: BP 123/61; PULSE 78; RESP 16; TEMP 98.4
[2024-09-09 03:00] VITALS: BP 126/70; PULSE 88; RESP 18; TEMP 98.1; O2SAT 97
--- NOTE | 2024-09-09 03:04 | LDN2 ---
Labor and Delivery Note Date 09/08/24 Age 33 3 Para 2 AB 1 EGA 38.2 Diagnosis Term , spontaneous labor Vaginal Delivery: VTX Vacuum Assisted: No Placenta: Spontaneous Sex: Male Weight Pending Apgars 8/9 Amniotic Fluid: Clear Anesthesia Epidural Episiotomy: No Repaired with 2nd deg repaired w/ 3-0 Chromic Rectal exam WNL, not involved EBL 100 mL Labs Laboratory Tests 07/09/24 09:55: Hepatitis B Surface Antigen Negative, HIV (1&2) Antibody Negative, Rubella An tibody Positive Blood Bank 09/08/24 08:29: Blood Type O POSITIVE Complications None IRMA EPPS DO Sep 09, 2024 03:04
--- NOTE | 2024-09-09 03:06 | DVHPN2 ---
Progress Note Date Seen: Sep 09, 2024 Subjective PPD#1 s/p doing well Lochia mild. no pain vital signs Vital Sign Date Time Temp Pulse Resp B/P (MAP) Pulse Ox O2 Delivery O2 Flow Rate FiO2 09/08/24 23:00 98.4 78 16 123/61 (81) 98.4 09/08/24 18:56 Room Air 09/08/24 18:55 96 Total Intake and Output 09/08/24 09/08/24 09/09/24 15:00 23:00 07:00 Output Total 300 ml Balance -300 ml medications Current Medications Medications Dose Ordered Sig/Lizzy Route Start Time Stop Time Status Last Admin Dose Admin Lactated Ringer's 1,000 ml @ 125 mls/hr Q8H IV 09/08/24 08:15 09/08/24 10:07 125 MLS/HR Witch Aspen 1 pad PRN PRN TOP 09/08/24 08:15 Sodium Lauryl Sulfate 240 ml PRN PRN TOP 09/08/24 08:15 Benzocaine 1 applic PRN PRN TOP 09/08/24 08:15 Butorphanol Tartrate 1 mg Q4HPRN PRN IV 09/08/24 08:15 Cancel Butorphanol Tartrate 2 mg Q4HPRN PRN IV 09/08/24 08:15 Cancel Lidocaine HCl 20 ml ONCE PRN IJ 09/08/24 08:15 Terbutaline Sulfate 0.25 mg ONCE PRN SC 09/08/24 12:30 Ibuprofen 600 mg Q6HP PRN PO 09/08/24 15:45 09/08/24 18:27 600 MG Acetaminophen 650 mg Q4HP PRN PO 09/08/24 15:45 09/08/24 20:33 650 MG Docusate Sodium 200 mg HS PO 09/08/24 22:00 laboratory and microbiology Laboratory Tests 09/08/24 08:29 Test 09/08/24 08:29 Range/Units Serum Glucose 94 74-106 mg/dL Objective O: AFVSS Chest: heart and lung sounds normal. Abd soft, non-tender, fundus firm, BS, no rebound or guarding, Ext Neg Homans, Non-tender, edema Lochia - minimal Labs Pending Assessment/Plan PPD#1 s/p doing well Advance care Discharge planning Plan discussed with: Patient IRMA EPPS DO Sep 09, 2024 03:06
[2024-09-09 06:06] LABS: RPR Non Reactive (Non Reactive)
[2024-09-09 06:55] VITALS: BP 124/73; PULSE 84; RESP 17; TEMP 98.3; O2SAT 96
[2024-09-09 10:52] VITALS: BP 129/69; PULSE 98; RESP 17; TEMP 98.2; O2SAT 96
[2024-09-09 15:04] VITALS: BP 131/83; PULSE 99; RESP 18; TEMP 98.4; O2SAT 97
[2024-09-09 19:30] VITALS: BP 134/82; PULSE 98; RESP 16; TEMP 97.8; O2SAT 98
[2024-09-09] MEDS: DOCUSATE SOD 100 MG CAP PO SCH (22:16)
[2024-09-09 23:00] VITALS: BP 124/72; PULSE 80; RESP 18; TEMP 98.2
[2024-09-10 03:00] VITALS: BP 123/75; PULSE 82; RESP 18; TEMP 98.2; O2SAT 97
[2024-09-10 07:25] VITALS: BP 121/75; PULSE 82; RESP 15; TEMP 98.8; O2SAT 96
--- NOTE | 2024-09-10 08:00 | DVHPN2 ---
Progress Note Date Seen: Sep 10, 2024 Subjective S: bleeding is less, eating food without issues, denies lightheaded/dizziness, pain well controlled with oral medications, no concerns with urinating, passing flatus, no BM yet, ambulating well, well Language line [employer] services used ([employer] #[id number]) vital signs Vital Sign Date Time Temp Pulse Resp B/P (MAP) Pulse Ox O2 Delivery O2 Flow Rate FiO2 09/10/24 07:25 98.8 82 15 121/75 (90) 96 98.8 09/09/24 19:30 Room Air Total Intake and Output 09/09/24 09/09/24 09/10/24 15:00 23:00 07:00 Output Total 600 ml Balance -600 ml medications Current Medications Medications Dose Ordered Sig/Lizzy Route Start Time Stop Time Status Last Admin Dose Admin Lactated Ringer's 1,000 ml @ 125 mls/hr Q8H IV 09/08/24 08:15 09/08/24 10:07 125 MLS/HR Witch Aspen 1 pad PRN PRN TOP 09/08/24 08:15 Sodium Lauryl Sulfate 240 ml PRN PRN TOP 09/08/24 08:15 Benzocaine 1 applic PRN PRN TOP 09/08/24 08:15 Butorphanol Tartrate 1 mg Q4HPRN PRN IV 09/08/24 08:15 Cancel Butorphanol Tartrate 2 mg Q4HPRN PRN IV 09/08/24 08:15 Cancel Lidocaine HCl 20 ml ONCE PRN IJ 09/08/24 08:15 Terbutaline Sulfate 0.25 mg ONCE PRN SC 09/08/24 12:30 Ibuprofen 600 mg Q6HP PRN PO 09/08/24 15:45 09/09/24 19:25 600 MG Acetaminophen 650 mg Q4HP PRN PO 09/08/24 15:45 09/09/24 14:54 650 MG Docusate Sodium 200 mg HS PO 09/08/24 22:00 09/09/24 22:16 200 MG laboratory and microbiology Laboratory Tests 09/08/24 08:29 Test 09/08/24 08:29 Range/Units Serum Glucose 94 74-106 mg/dL Objective O: VSS Chest: heart sounds normal and lung sounds clear bilaterally Abd: soft, non-tender, fundus at U/firm/midline, active bowel sounds, no rebound or guarding Perineum: sutures intact, edges well approximated, no erythema/edema noted Ext: Non-tender, No edema, 2+ BLE DTRs Lochia: minimal See lab results Problems(with codes): (1) (normal spontaneous vaginal delivery) (2) Precipitous drop in hematocrit (3) Second degree perineal laceration during delivery Assessment/Plan A: 33yo now PPD#2 s/p Anemia Rh+ Rubella Immune Pain control with PO medications Bowel regimen P: D/C home today Rx sent to pharmacy precautions and preeclampsia warning signs reviewed F/U with [facility] OB office in 2 weeks Plan discussed with: Patient RONNIE QUIJANO CNM Sep 10, 2024 07:59
--- NOTE | 2024-09-10 08:00 | DVHDS2 ---
Obstetrics Discharge Summary Obstetrics Discharge Summary Date of Admission: Sep 08, 2024 Date of Discharge: Sep 10, 2024 Reason For Admission: Onset of Labor Procedures: NST, Mgmt of Obstetrics Compli (TN) Intrapartum Procedures: Spontaneous vaginal deliv Procedures: Hct/date: (09/10/24), Hgb/date: (09/10/24) Operative Complicat: Laceration (second degree Perineal) Discharge Diagnosis: Term -Delivered Discharge Information: Activity (as tolerated, no heavy lifting and nothing in the vagina for 6 weeks), Diet (Routine), Medications (Rx sent), Instructions (Routine), Discharge to (Home), Accompanied by (family), Discarge date (09/10/24) RONNIE QUIJANO CNM Sep 10, 2024 08:00
[2024-09-10] MEDS ORDERED: IBU600T PO (08:07)
[2024-09-10] MEDS ORDERED: PRENCAP75 PO (08:07)
[2024-09-10] MEDS ORDERED: DOCU-265 PO (08:07)
[2024-09-10 09:29] LABS: Basophils # (auto) 0 10 ^3/uL (0-0.2); Basophils % (auto) 0.1 % (0.0-2.0); Eosinophils # (auto) 0.1 10 ^3/uL (0-0.8); Eosinophils % (auto) 0.5 % (0.0-7.0); Hematocrit 31.7 % (36.0-46.0); Hemoglobin 10.7 g/dL (12.2-16.2); Lymphocytes # (auto) 1.4 10 ^3/uL (0.4-5.4); Lymphocytes % (auto) 15.2 % (10.0-50.0); Mean Corpuscular Hgb Conc. 33.6 g/dL (32.0-36.0); Mean Corpuscular Volume 95.3 fL (80.0-100.0); Monocytes # (auto) 0.5 10 ^3/uL (0-1.3); Monocytes % (auto) 4.8 % (0.0-12.0); Neutrophils # (auto) 7.5 10 ^3/uL (1.6-8.6); Neutrophils % (auto) 79.4 % (37.0-80.0); Platelet Count (auto) 160 10^3/uL (140-450); Red Blood Cells 3.33 10^6/uL (4.0-5.20); Red Cell Distribution Width 13.6 % (11.8-14.3); White Blood Cell 9.4 10^3/uL (4.4-10.8)
[2024-09-10] MEDS ORDERED: FER325T PO (16:59)
[2024-09-11 12:06] LABS: Treponema Pallidum Ab LC Non Reactive (Non Reactive)
== END 2024-09-10 13:01 | disposition home or self-care (01) | DRG 560 ==
LOC: OBSVTOIN 07:58 → LDRP 07:58
PROVIDERS: ADMIT Obstetrics & Gynecology; ATTEND Obstetrics & Gynecology
PROC: 10E0XZZ Delivery of Products of Conception, External Approach (ICD-10-PCS; principal; 2024-09-08)
PROC: 0KQM0ZZ Repair Perineum Muscle, Open Approach (ICD-10-PCS; 2024-09-08)
PROC: 3E0R3BZ Introduction of Anesthetic Agent into Spinal Canal, Percutaneous Approach (ICD-10-PCS; 2024-09-08)
PROC: 00HU33Z Insertion of Infusion Device into Spinal Canal, Percutaneous Approach (ICD-10-PCS; 2024-09-08)
DX: O13.4 Gestational [pregnancy-induced] hypertension without significant proteinuria, complicating childbirth (principal); Z37.0 Single live birth; R71.0 Precipitous drop in hematocrit; O70.1 Second degree perineal laceration during delivery; O90.81 Anemia of the puerperium; Z3A.39 39 weeks gestation of pregnancy
CPT/HCPCS: 36415; 59409; 62282; 80053; 81002; 84550; 85025; 85610; 85730; 86592; 86780; 86803; 86850; 86900; 86901; 94760; 96360; 96361; 96365; 96366; G0378; J2590